=== PATIENT | female | born 1990 ===

== ENCOUNTER 2018-03-09 09:00 | Inpatient (IN) | payer OTHER ==
[~2018-03-09] VITALS: Ht 152.4 cm; Wt 3.2 kg
[2018-03-13] MEDS ORDERED: PRENATABS RX T1 EACH PO (11:24)
== END 2018-03-21 14:05 | disposition home or self-care (01) | DRG 785 ==
LOC: OB/GYN 09:00 → O/R 03-18 07:22 → OB/GYN 03-18 08:00
PROVIDERS: ADMIT Obstetrics & Gynecology Maternal & Fetal Medicine
PROC: 0UL70ZZ Occlusion of Bilateral Fallopian Tubes, Open Approach (ICD-10-PCS; 2018-03-18)
PROC: 4A1HXCZ Monitoring of Products of Conception, Cardiac Rate, External Approach (ICD-10-PCS; 2018-03-18)
PROC: 10D00Z1 Extraction of Products of Conception, Low, Open Approach (ICD-10-PCS; principal; 2018-03-18 08:00)
DX: O34.211 Maternal care for low transverse scar from previous cesarean delivery (principal); O75.82 Onset (spontaneous) of labor after 37 completed weeks of gestation but before 39 completed weeks gestation, with delivery by (planned) cesarean section; Z3A.39 39 weeks gestation of pregnancy; Z37.0 Single live birth; Z30.2 Encounter for sterilization

== ENCOUNTER 2021-09-07 09:12 | Outpatient (CLI) | payer OTHER ==
[~2021-09-07 09:12] MED LIST: PRENATABS RX T1 EACH PO
== END 2021-09-07 09:38 | disposition home or self-care (01) ==
LOC: MAMO-SONO 09:12
PROVIDERS: ATTEND Obstetrics & Gynecology
DX: N64.4 Mastodynia (principal)